=== PATIENT | female | born 2000 | race Caucasian/White ===

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

== ENCOUNTER 2021-03-16 17:16 | Emergency (ER) | payer OTHER, SELFPAY ==
[~2021-03-16] VITALS: Ht 167.6 cm; Wt 90.7 kg
[2021-03-16 18:17] VITALS: BP_SYST 117
--- NOTE | 2021-03-16 18:25 | NUR ---
Patient to TENT 1 to gown for evaluation. Side rails up.
--- NOTE | 2021-03-16 18:27 | NUR ---
PATIENT BROUGHT IN COMPLAINING OF PRODUCTIVE COUGH WITH SPUTUM X 2 WEEKS. PATIENT REPORTS FEELING FAINT AND NEAR SYNCOPLE. NO OTHER COMPLAINTS/INJURIES PER PATIENT OR NOTED.
--- NOTE | 2021-03-16 18:30 | NUR ---
ER at bedside examining patient.
[2021-03-16] MEDS ORDERED: PSEU30TA36 PO (20:15)
[2021-03-16] MEDS ORDERED: ONDA-8 TL (20:15)
[2021-03-16] MEDS ORDERED: IBUP-1969 PO (20:15)
[2021-03-16 20:44] VITALS: BP_SYST 116
--- NOTE | 2021-03-16 20:44 | NUR ---
Patient given written and verbal discharge instructions and verbalizes understanding. ER MD discussed with patient the results and treatment provided. Patient in stable condition. ID arm band removed. Rx of SUDAFED, IBUPROFEN, ZOFRAN given. Patient educated on pain management and to follow up with PMD. Pain Scale 0/10 Opportunity for questions provided and answered. Medication side effect fact sheet provided.
== END 2021-03-16 20:44 | disposition home or self-care (01) ==
LOC: SED 17:16
DX: J20.9 Acute bronchitis, unspecified (principal); Z88.1 Allergy status to other antibiotic agents; Z79.899 Other long term (current) drug therapy; Z20.822 Contact with and (suspected) exposure to COVID-19
CPT/HCPCS: 36415; 71045; 99284

== ENCOUNTER 2023-09-05 15:37 | Emergency (ER) | payer BC, OTHER ==
[~2023-09-05] VITALS: Ht 167.6 cm; Wt 94.3 kg
[~2023-09-05 15:37] MED LIST: IBUP-1969 PO; ONDA-8 TL; PSEU30TA36 PO
[2023-09-05 16:13] VITALS: BP_SYST 130; PULSE 100; RESP 17; TEMP 98.2; O2SAT 98
[2023-09-05 18:37] LABS: BASOPHILS % (AUTO) 0.5 % (0.0-2.0); EOSINOPHILS # (AUTO) 0.1 K/uL (0.0-0.4); EOSINOPHILS % (AUTO) 1.1 % (0.0-4.0); HEMOGLOBIN 14.8 g/dL (12.0-16.0); LYMPHOCYTES # (AUTO) 2.8 K/uL (1.0-5.5); LYMPHOCYTES % (AUTO) 31.9 % (20.5-51.5); MEAN CORPUSCULAR HEMOGLOBIN 32 pg (27-31); MEAN CORPUSCULAR HGB CONC 34 % (32-36); MEAN CORPUSCULAR VOLUME 93 fL (79.0-98.0); MONOCYTES # (AUTO) 0.6 K/uL (0.0-1.0); MONOCYTES % (AUTO) 7.3 % (1.7-9.3); NEUTROPHILS # (AUTO) 5.1 K/uL (1.8-7.7); NEUTROPHILS % (AUTO) 59.2 % (40.0-70.0); PLATELET COUNT (AUTO) 233 K/uL (130-430); RED BLOOD CELL COUNT(AUTO) 4.64 MIL/uL (4.2-6.2); RED CELL DISTRIBUTION WIDTH 12.7 % (9.0-15.0); WHITE BLOOD COUNT (AUTO) 8.6 K/uL (4.8-10.8)
[2023-09-05 19:06] LABS: ALANINE AMINOTRANSFERASE 116 U/L (12-78); ALBUMIN 4.4 g/dL (3.4-4.8); ANION GAP 13 (5-15); ASPARTATE AMINOTRANSFERASE 57 U/L (10-37); BILIRUBIN,DIRECT 0.2 mg/dL (0.0-0.3); CALCIUM 9.8 mg/dL (8.4-11.0); CARBON DIOXIDE 25 mmol/L (23-29); CHLORIDE 98 mmol/L (98-107); CREATININE 0.86 mg/dL (0.55-1.30); GFR AFRICAN AMERICAN 106 mL/min (>90); GLUCOSE 236 mg/dL (74-106); LIPASE 30 U/L (16-77); POTASSIUM 3.7 mmol/L (3.5-5.1); SODIUM SERUM 136 mmol/L (136-145); TOTAL BILIRUBIN 0.9 mg/dL (0.0-1.0); TOTAL PROTEIN, SERUM 8.5 g/dL (6.4-8.3); UREA NITROGEN, BLOOD 7 mg/dL (8-21)
[2023-09-05 19:09] LABS: ACETONE, SERUM NEGATIVE (NEGATIVE)
[2023-09-05] MEDS ORDERED: METF-379 PO (19:26)
[2023-09-05 19:29] LABS: BILIRUBIN,URINE NEGATIVE (NEGATIVE); BLOOD, URINE NEGATIVE (NEGATIVE); CLARITY/URINE CLEAR (CLEAR); COLOR,URINE YELLOW (YELLOW); GLUCOSE,URINE 3+ (NEGATIVE); KETONES,URINE NEGATIVE (NEGATIVE); LEUKOCYTE ESTERASE ,URINE NEGATIVE (NEGATIVE); NITRITE, URINE NEGATIVE (NEGATIVE); PROTEIN URINE NEGATIVE (NEGATIVE); UROBILINOGEN,URINE 0.2 (0.2-1.0)
== END 2023-09-05 20:25 | disposition home or self-care (01) ==
LOC: SED 15:37
DX: E11.65 Type 2 diabetes mellitus with hyperglycemia (principal); R74.8 Abnormal levels of other serum enzymes; R30.0 Dysuria; F41.9 Anxiety disorder, unspecified; Z88.1 Allergy status to other antibiotic agents; Z79.899 Other long term (current) drug therapy; Z79.2 Long term (current) use of antibiotics
CPT/HCPCS: 36415; 80048; 80076; 81001; 81003; 81025; 82009; 82948; 83690; 85025; 99283

== ENCOUNTER 2023-10-26 10:39 | Emergency (ER) | payer BC ==
[~2023-10-26] VITALS: Ht 167.6 cm; Wt 90.7 kg
[~2023-10-26 10:39] MED LIST changes: +METF-379 PO
[2023-10-26 10:54] VITALS: BP_SYST 135; PULSE 99; RESP 16; TEMP 97.7; O2SAT 98
[2023-10-26 11:14] LABS: BASOPHILS % (AUTO) 0.5 % (0.0-2.0); EOSINOPHILS # (AUTO) 0.1 K/uL (0.0-0.4); EOSINOPHILS % (AUTO) 1.1 % (0.0-4.0); HEMATOCRIT 41.3 % (36-48); HEMOGLOBIN 13.9 g/dL (12.0-16.0); LYMPHOCYTES # (AUTO) 2.8 K/uL (1.0-5.5); LYMPHOCYTES % (AUTO) 36.1 % (20.5-51.5); MEAN CORPUSCULAR HEMOGLOBIN 32 pg (27-31); MEAN CORPUSCULAR HGB CONC 34 % (32-36); MEAN CORPUSCULAR VOLUME 94 fL (79.0-98.0); MONOCYTES # (AUTO) 0.5 K/uL (0.0-1.0); MONOCYTES % (AUTO) 6.5 % (1.7-9.3); NEUTROPHILS # (AUTO) 4.3 K/uL (1.8-7.7); NEUTROPHILS % (AUTO) 55.8 % (40.0-70.0); PLATELET COUNT (AUTO) 267 K/uL (130-430); RED BLOOD CELL COUNT(AUTO) 4.41 MIL/uL (4.2-6.2); RED CELL DISTRIBUTION WIDTH 12.9 % (9.0-15.0); WHITE BLOOD COUNT (AUTO) 7.6 K/uL (4.8-10.8)
[2023-10-26 11:39] LABS: INR 1.1 (0.8-1.2); PROTHROMBIN TIME 11.9 SECS (9.5-12.5)
[2023-10-26 11:57] LABS: BILIRUBIN,DIRECT 0.2 mg/dL (0.0-0.3); CREATINE KINASE, TOTAL 132 U/L (26-192); CREATININE 0.96 mg/dL (0.55-1.30); GFR AFRICAN AMERICAN 93 mL/min (>90)
[2023-10-26 12:32] LABS: ALANINE AMINOTRANSFERASE 104 U/L (12-78); ANION GAP 14 (5-15); ASPARTATE AMINOTRANSFERASE 59 U/L (10-37); CALCIUM 9.4 mg/dL (8.4-11.0); CARBON DIOXIDE 21 mmol/L (23-29); CHLORIDE 101 mmol/L (98-107); GLUCOSE 262 mg/dL (74-106); POTASSIUM 3.8 mmol/L (3.5-5.1); SODIUM SERUM 136 mmol/L (136-145); TOTAL BILIRUBIN 0.9 mg/dL (0.0-1.0); TOTAL PROTEIN, SERUM 8.1 g/dL (6.4-8.3); UREA NITROGEN, BLOOD 11 mg/dL (8-21)
[2023-10-26 12:37] LABS: GFR NON AFRICAN-AMERICAN 77 mL/min (>90)
[2023-10-26 14:15] VITALS: O2SAT 98
[2023-10-26] MEDS: IPRATROPIUM/ALBUTEROL SULFATE 3 ML AMPUL.NEB (DUONEB) INH ONE (14:15)
[2023-10-26] MEDS: NACL 0.9% 1,000 ML IV ONE (14:23)
[2023-10-26] MEDS ORDERED: ALBMDI INH (16:13)
[2023-10-26 16:36] VITALS: BP_SYST 135; PULSE 99; RESP 16; TEMP 97.7; O2SAT 98
[2023-10-26 16:43] LABS: FREE T4 (FREE THYROXINE) 1.2 ng/dl (0.8-1.5); THYROID STIMULATING HORMONE 1.18 uIu/mL (0.36-3.74)
[2023-10-26 17:18] LABS: COVID19 ANTIGEN SOFIA FIA NEGATIVE (NEGATIVE)
[2023-10-26 17:22] LABS: INFLUENZA TYPE A Negative (NEGATIVE); INFLUENZA TYPE B NEGATIVE (NEGATIVE)
== END 2023-10-26 16:35 | disposition home or self-care (01) ==
LOC: SED 10:39
DX: J40 Bronchitis, not specified as acute or chronic (principal); R51.9 Headache, unspecified; R07.89 Other chest pain; Z20.822 Contact with and (suspected) exposure to COVID-19; E11.9 Type 2 diabetes mellitus without complications; F41.9 Anxiety disorder, unspecified; Z88.1 Allergy status to other antibiotic agents; Z79.899 Other long term (current) drug therapy; Z79.2 Long term (current) use of antibiotics
CPT/HCPCS: 99285; 96360; 70450; 71045; 87426; 80076; 80048; 82550; 84439; 84443; 85025; 85610; 85730; 84484; 36415; 93005; 94640; 81025; 82948; 83605; 87804 ×2; J7030